=== PATIENT | female | born 1975 | race African-American/Black ===

== ENCOUNTER 2016-12-09 20:43 | Emergency (ER) | payer OTHER ==
[2016-12-09 22:23] LABS: ALT (SGPT) 16 U/L (8-55); AST (SGOT) 18 U/L (5-34); Alkaline Phosphatase 96 U/L (40-150); Anion Gap 15 mmol/L (10-20); BUN (Urea Nitrogen) 17 mg/dL (7.0-18.7); Bilirubin, Total 0.4 mg/dL (0.2-1.2); Calc. Creatinine Clearance 0 mL/min (70-130); Carbon Dioxide 26 mmol/L (22-29); Chloride 102 mmol/L (98-107); Estimated GFR-MDRD 44; Globulin 4.1 g/dL (2.4-3.5); Protein, Total 7.5 g/dL (6.0-8.3)
[2016-12-09 22:41] LABS: #Basophils 0.1 thou/uL (0.0-0.2); #Eosinphils 0.2 thou/uL (0.0-0.7); #Lymphocytes 1.1 thou/uL (1.20-3.40); #Monocytes 0.8 thou/uL (0.11-0.59); #Neutrophils 4.4 thou/uL (1.40-6.50); %Basophils 0.8 % (0.0-1.0); %Eosinophils 3.4 % (0.0-10.0); Hematocrit 43.1 % (36.0-47.0); Mean Platelet Volume 7.4 fL (7.4-10.4); Red Blood Cell (RBC) Count 4.81 mill/uL (4.20-5.40); White Blood Cell (WBC) Count 6.6 thou/uL (4.8-10.8)
[2016-12-09] MEDS ORDERED: Acetaminophen 500 MG TAB ONE (22:43)
[2016-12-09 22:48] LABS: Bilirubin Negative (Negative); Blood, Urine Negative (Negative); Glucose, Urine (Dipstick) Negative (Negative); Ketone, Urine Negative (Negative); Nitrite Negative (Negative); Protein, Urine (Dipstick) Negative (Neg-Trace)
== END 2016-12-10 00:01 | disposition home or self-care (01) ==
LOC: ERS 20:43
DX: N28.9 Disorder of kidney and ureter, unspecified (principal); R55 Syncope and collapse; D86.9 Sarcoidosis, unspecified; G47.30 Sleep apnea, unspecified; E11.9 Type 2 diabetes mellitus without complications; K21.9 Gastro-esophageal reflux disease without esophagitis; E66.9 Obesity, unspecified; I11.0 Hypertensive heart disease with heart failure; I50.9 Heart failure, unspecified; M10.9 Gout, unspecified; E78.5 Hyperlipidemia, unspecified; F41.9 Anxiety disorder, unspecified
CPT/HCPCS: 36415; 80053; 81003; 81025; 85025; 93005; 96360

== ENCOUNTER 2017-03-08 17:12 | Inpatient (IN) | payer OTHER ==
[2017-03-08 17:59] LABS: ALT (SGPT) 15 U/L (8-55); AST (SGOT) 19 U/L (5-34); Albumin 3.7 g/dL (3.5-5.0); Alkaline Phosphatase 119 U/L (40-150); Anion Gap 18 mmol/L (10-20); BUN (Urea Nitrogen) 14 mg/dL (7.0-18.7); Bilirubin, Total 0.5 mg/dL (0.2-1.2); Calc. Creatinine Clearance 0 mL/min (70-130); Calcium 9.5 mg/dL (7.8-10.44); Carbon Dioxide 23 mmol/L (22-29); Chloride 93 mmol/L (98-107); Estimated GFR-MDRD 36; Globulin 4.7 g/dL (2.4-3.5); Glucose 463 mg/dL (70-105); Potassium 4.2 mmol/L (3.5-5.1); Protein, Total 8.4 g/dL (6.0-8.3); Sodium 130 mmol/L (136-145)
[2017-03-08 18:04] LABS: Band 7 % (5-11); Hemoglobin 15.1 g/dL (12.0-16.0); Lymphocytes 15 % (21-51); MDiff Complete? YES; Mean Corpuscular HGB CONC 31.7 g/dL (32.0-36.0); Mean Corpuscular Hemoglobin 27.7 pg (27.0-31.0); Mean Corpuscular Volume 87.3 fl (81.0-99.0); Mean Platelet Volume 8.2 fL (7.4-10.4); Monocytes 17 % (0-10); Neutrophil 60 % (42-75); PLT Morphology Comment Appears Adequate; Platelet Count 177 thou/uL (130-400); RBC Distribution Width 14.5 % (11.5-14.5); Reactive Lymphocytes 1 % (0-10); Red Blood Cell (RBC) Count 5.46 mill/uL (4.20-5.40); White Blood Cell (WBC) Count 4.7 thou/uL (4.8-10.8)
[2017-03-08 19:05] LABS: Phosphorus 3.4 mg/dL (2.3-4.7)
[2017-03-08 19:18] LABS: Magnesium 1.8 mg/dL (1.6-2.6)
[2017-03-08 20:17] LABS: CKMB 1.8 ng/mL (0-6.6); Troponin I 0.015 ng/mL (< 0.028)
[2017-03-08 20:43] LABS: Bilirubin Moderate (Negative); Blood, Urine Negative (Negative); Clarity CLEAR (Clear); Glucose, Urine (Dipstick) >=1000 mg/dL (Negative); Leukocyte Negative (Negative); Nitrite Negative (Negative); Protein, Urine (Dipstick) 100 mg/dL (Neg-Trace); Urobilinogen 0.2 mg/dL (0.2-1.0)
[2017-03-08 20:45] LABS: Bacteria/HPF Rare-Few HPF (None Seen); Hyaline Casts/LPF 0-3 HYALINE CAST LPF (0-3 Hyaline); Pathc Cast-AUWi Flag 0.54 (0-2.49); RBC/HPF 0-3 HPF (0-3); WBC/HPF 0-3 HPF (0-3)
[2017-03-08 20:46] LABS: Yeast-AUWi Flag 88.4 (0-25.0)
[2017-03-08 20:51] LABS: Transitional Epithelial 0-3 HPF (0-3)
[2017-03-08 20:52] LABS: Yeast-All Forms Rare HPF (None Seen)
--- NOTE | 2017-03-08 21:08 | RAD ---
PORTABLE AP CHEST X-RAY 03/08/17 HISTORY: Dyspnea and not feeling well. Nausea and vomiting for three to four days. COMPARISON: 10/30/16. FINDINGS: Dual lead left subclavian cardiac pacemaking device remains in place. There is linear and minimal pat ursula density in the mid lung zone which could be related to developing area of pneumonitis. Right lung is clear. There is suboptimal evaluation of the left lung base due to technique of the exam. The car diac silhouette and pulmonary vasculature are within normal limits for the portable technique. No oth er interval change. IMPRESSION: Linear and minimal patchy density in the left mid lung zone which could be related to atelectasis or developing area of pneumonitis. Followup chest x-ray is recommended to resolution. POS: [facility]
[2017-03-08 21:40] LABS: Base Excess-Venous 0.2 mmol/L (-30.0-30.0); Bicarbonate (HCO3v) 25.7 mmol/L (1.0-85.0); CO2 Tension (PvCO2) 43.5 mmHg (41.0-51.0); Calcium, Ionized 1.01 mmol/L (1.12-1.32); Hemoglobin - Calc 17.4 g/dL (12.0-18.0); O2 Tension (PvO2) 59.6 mmHg (35.0-45.0); Potassium 4.2 mmol/L (3.4-4.7); T. Carbon Dioxide 27.1 mmol/L (1.0-85.0); vO2 Saturation-calc 89.8 % (0.0-100.0)
[2017-03-08] MEDS ORDERED: Insulin Regular 300 UNITS/3 ML VIAL ONE (22:11)
[2017-03-08] MEDS ORDERED: CEFTRIAXONE 2GM/50 ML BAG 2 GM in Premix Bag 1 BAG IVPB SCH (22:15)
[2017-03-08] MEDS ORDERED: Azithromycin 500 MG in Sodium Chloride 0.9% 250 ML 250 ML IVPB SCH (22:15)
[2017-03-09] MEDS ORDERED: Sodium Chloride 0.9% 1,000 ML IV SCH (02:10)
[2017-03-09] MEDS ORDERED: Acetaminophen 325 MG TAB PO PRN (02:10)
[2017-03-09] MEDS ORDERED: Ondansetron ODT 4 MG TAB SL PRN (02:10)
[2017-03-09] MEDS ORDERED: Ondansetron HCl/PF 4 MG/2 ML Vial IVP PRN ×2 (02:10→08:43)
[2017-03-09] MEDS ORDERED: Dextrose 5% in Water 1,000 ML IV PRN (02:44)
[2017-03-09] MEDS ORDERED: Chloraseptic Spray 180 ml Bottle PO PRN (02:44)
[2017-03-09] MEDS ORDERED: hydrALAZINE 20 MG/ML VIAL SLOW IVP PRN (02:44)
[2017-03-09] MEDS ORDERED: Bisacodyl 5 MG TAB PO PRN (02:44)
[2017-03-09] MEDS ORDERED: Metoclopramide HCl 10 MG/2 ML VIAL IVP PRN (02:44)
[2017-03-09] MEDS ORDERED: HumaLOG 300 UNITS/3 ML VIAL SC PRN (02:44)
[2017-03-09] MEDS ORDERED: Dextrose 50% Abboject 50 ML SYRINGE SLOW IVP PRN (02:44)
[2017-03-09] MEDS ORDERED: Calcium Carbonate 500 MG ChewTAB PO PRN (02:44)
[2017-03-09 03:25] VITALS: BMI 66.9
[2017-03-09] MEDS: Sodium Chloride 0.9% 1,000 ML IV SCH ×2 (03:48→14:41)
[2017-03-09 05:13] LABS: Anion Gap 17 mmol/L (10-20); BUN (Urea Nitrogen) 12 mg/dL (7.0-18.7); Calc. Creatinine Clearance 143 mL/min (70-130); Calcium 9.2 mg/dL (7.8-10.44); Carbon Dioxide 24 mmol/L (22-29); Chloride 95 mmol/L (98-107); Estimated GFR-MDRD 40; Glucose 349 mg/dL (70-105); Potassium 3.9 mmol/L (3.5-5.1); Sodium 132 mmol/L (136-145)
[2017-03-09 05:25] LABS: Band 6 % (5-11); Eosinophils 1 % (0-10); Hemoglobin 14.1 g/dL (12.0-16.0); Lymphocytes 20 % (21-51); MDiff Complete? YES; Mean Corpuscular HGB CONC 31.2 g/dL (32.0-36.0); Mean Corpuscular Hemoglobin 27.2 pg (27.0-31.0); Mean Corpuscular Volume 87.2 fl (81.0-99.0); Mean Platelet Volume 8.4 fL (7.4-10.4); Monocytes 20 % (0-10); Neutrophil 53 % (42-75); Platelet Count 195 thou/uL (130-400); RBC Distribution Width 14.4 % (11.5-14.5); Red Blood Cell (RBC) Count 5.19 mill/uL (4.20-5.40); White Blood Cell (WBC) Count 5.6 thou/uL (4.8-10.8)
--- NOTE | 2017-03-09 06:11 | HP ---
CHIEF COMPLAINT: Nausea, vomiting, and hypoxia, shortness of breath. HISTORY OF PRESENT ILLNESS: This is a 41-year-old pleasant lady, who comes into the hospital with hy poxia and nausea, vomiting. Her room air sats were 88 and went up to 96 on 2 liters. The patient al so had some intractable nausea and vomiting for the last 3 or 4 days with some chills and some cough. She came into the hospital for evaluation of that. When she came in, her sugar was 463. She was g iven some IV and she was dehydrated as well. For all these reason, the patient has been admitted for further evaluation and treatment. Chest x-ray did show some left middle zone pneumonia and she is b eing admitted for further evaluation and treatment of that. The patient denies any chest pain or abd ominal pain or any dysuria or diarrhea. PAST MEDICAL HISTORY: Significant for history of syncope with symptomatic bradycardia, status post p ermanent pacemaker placement, obstructive sleep apnea, stage IV sarcoidosis with hypercalcemia, histo ry of diabetes, which being controlled by diet, GERD, morbid obesity, peripheral neuropathy, hyperten qing. PAST SURGICAL HISTORY: Includes tracheostomy, cholecystectomy. SOCIAL HISTORY: Nonsmoker, nondrinker. Does not use recreational drugs. ALLERGIES: OXYCONTIN and PENICILLIN. MEDICATIONS: Please see MAR. FAMILY HISTORY: Negative for diabetes and hypertension. REVIEW OF SYSTEMS: Significant for shortness of breath, nausea, vomiting, some subjective fever and chills. Otherwise, no headache, no eye pain, no hearing loss, no latencies. Some cough and no chest pain, no diarrhea, dysuria or polyuria. No memory or mood changes. No neck pain. PHYSICAL EXAMINATION: VITAL SIGNS: Blood pressure is 100/51, respirations 20, afebrile. Right now satting 96% on 2 liters . GENERAL: Patient is lying in bed in mild distress because of the nausea. HEENT: Atraumatic, normocephalic. Pupils are equally round, react to light. Extraocular movements intact. Mucous membranes moist. NECK: No JVD. CHEST: Some coarse breath sounds heard in the left side. HEART: S1, S2 normal. No murmurs or gallops. ABDOMEN: Soft, obese. EXTREMITIES: No cyanosis, clubbing, edema. Distal pulses present. NEUROLOGIC: Alert, awake, oriented. No cranial deficits. No sensorimotor deficits. LABORATORY DATA: WBC is 4.7, hemoglobin is 15.1, platelet count is 177, neutrophils are 60, venous A BG shows a pH of 7.38. Sodium is 130, potassium is 4.2, chloride is 93, bicarbonate is 23, BUN is 14 , creatinine is 1.8. UA shows no signs of infection. Toxicology shows beta hydroxybutyrate of 2.33. ASSESSMENT AND PLAN: 1. Acute respiratory failure with hypoxia secondary to combination of pneumonia and obstructive slee p apnea, and there is a left zone infiltrate on the chest x-ray. We will treat with IV antibiotics a nd get sputum cultures. Check for flu. Consult Pulmonary. Patient also has a stage IV sarcoidosis. She is followed by Dr. Moran as an outpatient, nausea, vomiting with hyperglycemia. Patient is n ot acidotic, as of now bicarbonate is 23. We will symptomatically treat the patient. We will give I V hydration and put the patient on insulin. We will monitor BNP and do the need for acute renal fail ure secondary to dehydration. We will gently hydrate the patient. 2. Morbid obesity. Patient has been counseled. 3. History of syncope, status post pacemaker done by Dr. Harris, sally. 4. History of diabetes right now, uncontrolled sugars usually controlled by diet. We will do insuli n sliding scale and monitor the patient. 5. Gastroesophageal reflux disease, stable. 6. Hypertension, stable. I will do sequential compression device for deep venous thrombosis prophyl axis. I will work with the consultants further caring for the patient.
[2017-03-09] MEDS: Docusate 100 MG CAP PO SCH ×2 (08:10→20:30)
[2017-03-09] MEDS ORDERED: Ondansetron ODT 4 MG TAB PO PRN (08:43)
[2017-03-09] MEDS ORDERED: Nitroglycerin 0.4 MG TAB (25 Tab Bottle) PO PRN (08:43)
[2017-03-09] MEDS ORDERED: Senokot 8.6 MG TAB PO PRN (08:43)
[2017-03-09] MEDS ORDERED: FLU VACC QS2017-18 36 mo. & older 0.5 ML SYRINGE IM ONE (09:00)
[2017-03-09] MEDS ORDERED: Insulin Detemir 100 UNITS/ML 5 UNITS in Pre-Filled Syringe 1 EACH SC SCH (09:00)
[2017-03-09] MEDS: Famotidine 20 MG TAB PO SCH ×2 (10:14→20:31)
[2017-03-09 11:39] LABS: Hemoglobin A1c 10.7 % (4.0-6.0)
[2017-03-09] MEDS ORDERED: predniSONE 20 MG TAB PO SCH (12:00)
[2017-03-09] MEDS: HumaLOG 300 UNITS/3 ML VIAL SC PRN ×3 (12:54→20:33)
--- NOTE | 2017-03-09 13:27 | CON ---
DATE OF SERVICE: 03/09/2017 HISTORY: Ms. Penn is a very pleasant 41-year-old female with a history of sarcoidosis. She has been seen by Dr. Moran in the past. She has not been seen by him in quite some time, she says, because she is being unable to get a referral from her primary care physician. She presents with a week of aches, nausea, vomiting and change in her vision. She subsequently was evaluated in the Emergency Department, noted to be hyperglycemic. She says she has never been on medications for diabetes. There have been multiple ER visits here in the last 2 years. The last hospitalization was in 2014. It was mentioned in the discharge summary that she had type 2 diabetes, but she had normal blood sugars while she was in the hospital. She was not discharged on any diabetes medicine and was discharged surprisingly on a prednisone taper with no history of hyperglycemia during that hospitalization with steroids. Says her nausea is better, but her vision is still blurry. We are consulted because of her history of sarcoid. PAST MEDICAL HISTORY: 1. Remarkable for sleep apnea on BiPAP. She says she is 100% compliant with BiPAP and her family is bringing her machine up. 2. History of moderate restrictive defect on pulmonary function tests in the past. 3. History of diabetes, on no medications. 4. Gastroesophageal reflux. 5. Gout. 6. Lipid disorder. 7. History of ventricular tachycardia. 8. History of a tracheostomy in the past. 9. History of cholecystectomy. SOCIAL HISTORY: She is a nonsmoker and nondrinker. She still has significant weight issues. Apparently, she has been living in a fpc in the past; it is unclear to me whether or not she still has. FAMILY HISTORY: Noncontributory ALLERGIES: She reports OXYCONTIN and PENICILLIN intolerance. MEDICATIONS: Prior to admission, she was on gabapentin, 15 mg of prednisone, 5 mg of amlodipine and 20 mg of lisinopril. REVIEW OF SYSTEMS: Ten-point is otherwise negative. She has had no diarrhea or abdominal pain. She denies shortness of breath, but she does not move much. Otherwise, her 10- point review of systems negative. PHYSICAL EXAMINATION: VITAL SIGNS: She is afebrile, heart rate is 86, respiratory rate is 18, oximetry is 94 and blood pressure is 109/74. She is on 2 liters a minute. HEENT: Pupils are equal. Sclerae is anicteric. NECK: Supple. LUNGS: Remarkable for diffuse mild wheezes. HEART: Regular rhythm. S1 and S2 are normal. ABDOMEN: Soft and nontender. EXTREMITIES: Without clubbing, cyanosis or edema. IMAGING DATA: Chest radiograph is underpenetrated. There is an area of plate- like atelectasis in her left lung, it is very small. IMPRESSION: 1. Asthmatic bronchitis. 2. History of sarcoidosis. 3. Atelectasis in the left lung. 4. Sleep apnea to be treated with her home BiPAP when it arrives via her family. 5. Sarcoid, which is not the cause of the primary admission. 6. Life threatening obesity and inactivity. 7. Reported history of ventricular tachycardia in the past. 8. History of hypertension. 9. History of reflux disease. PLAN: Bump her steroids. Continue nebulized treatments every 4 hours. Her antibiotics can be simplified. Continue current care. This is a 50-minute consult, greater than 50% of the time was spent on the unit coordinating care, reviewing the records, reviewing radiographs and lab work as well as old records in the computer system. NERY
[2017-03-09] MEDS: Ciprofloxacin HCL/Dexameth Otic Drops 7.5 ml Bottle L EAR SCH (20:29)
[2017-03-09] MEDS: Enoxaparin Sodium 40 MG/0.4 ML SYRINGE SC SCH (20:30)
[2017-03-09] MEDS: Insulin Detemir 100 UNITS/ML 10 UNITS in Pre-Filled Syringe SC SCH (20:31)
[2017-03-09] MEDS: Gabapentin 300 MG CAP PO SCH (20:31)
[2017-03-09] MEDS: ALPRAZolam 0.25 MG TAB PO PRN (20:31)
--- NOTE | 2017-03-09 21:20 | PDOC.EVN ---
Event Note - Event Note Event Note: Patient seen and examined earlier today. Chart reviewed. Pulmonary input pending. Home meds started IMPRESSION: 1. Acute hypoxic respiratory failure due to Pneumonia DKA 2. DKA with N/V probably due to Acute Gastroenteritis vs DKA - improving 3. GEREMIAS - improving 4. DM2 - uncontrolled - Sugars have been normal in the past - currently on no meds 5. ALAN on CPAP 6. Sinus node dysfunction s/p Pacemaker/ HTN/GERD/Sarcoidosis on chronic steroids.
[2017-03-10] MEDS: Sodium Chloride 0.9% 1,000 ML IV SCH ×2 (00:04→08:15)
[2017-03-10] MEDS: HumaLOG 300 UNITS/3 ML VIAL SC PRN ×5 (02:41→21:44)
[2017-03-10 04:41] LABS: #Lymphocytes 0.5 thou/uL (1.20-3.40); #Monocytes 0.1 thou/uL (0.11-0.59); #Neutrophils 3.2 thou/uL (1.40-6.50); %Eosinophils 0.5 % (0.0-10.0); %Monocytes 3.5 % (0.0-10.0); Hemoglobin 13.6 g/dL (12.0-16.0); Mean Corpuscular HGB CONC 30.8 g/dL (32.0-36.0); Mean Corpuscular Hemoglobin 27.3 pg (27.0-31.0); Mean Corpuscular Volume 88.4 fl (81.0-99.0); Mean Platelet Volume 8.5 fL (7.4-10.4); Platelet Count 171 thou/uL (130-400); RBC Distribution Width 14.5 % (11.5-14.5); Red Blood Cell (RBC) Count 4.99 mill/uL (4.20-5.40); White Blood Cell (WBC) Count 3.8 thou/uL (4.8-10.8)
[2017-03-10 05:01] LABS: ALT (SGPT) 10 U/L (8-55); AST (SGOT) 21 U/L (5-34); Albumin 3.3 g/dL (3.5-5.0); Alkaline Phosphatase 97 U/L (40-150); Anion Gap 19 mmol/L (10-20); BUN (Urea Nitrogen) 12 mg/dL (7.0-18.7); Bilirubin, Total 0.5 mg/dL (0.2-1.2); Calc. Creatinine Clearance 143 mL/min (70-130); Calcium 8.5 mg/dL (7.8-10.44); Carbon Dioxide 18 mmol/L (22-29); Chloride 98 mmol/L (98-107); Estimated GFR-MDRD 40; Globulin 4.3 g/dL (2.4-3.5); Glucose 455 mg/dL (70-105); Magnesium 1.9 mg/dL (1.6-2.6); Phosphorus 2.7 mg/dL (2.3-4.7); Protein, Total 7.6 g/dL (6.0-8.3); Sodium 130 mmol/L (136-145)
[2017-03-10] MEDS: Ciprofloxacin HCL/Dexameth Otic Drops 7.5 ml Bottle L EAR SCH (08:12)
[2017-03-10] MEDS: Insulin Detemir 100 UNITS/ML 10 UNITS in Pre-Filled Syringe SC SCH (08:14)
[2017-03-10] MEDS: Amlodipine 5 MG TAB PO SCH (08:16)
[2017-03-10] MEDS: Famotidine 20 MG TAB PO SCH ×2 (08:17→20:39)
[2017-03-10] MEDS: Gabapentin 300 MG CAP PO SCH ×2 (08:17→20:25)
[2017-03-10] MEDS: Citalopram 20 MG TAB PO SCH (08:17)
[2017-03-10] MEDS: Docusate 100 MG CAP PO SCH ×2 (08:17→20:39)
[2017-03-10] MEDS: ALPRAZolam 0.25 MG TAB PO PRN ×2 (08:23→21:48)
[2017-03-10] MEDS ORDERED: Insulin Detemir 100 UNITS/ML 15 UNITS in Pre-Filled Syringe 1 EACH SC SCH (09:00)
[2017-03-10] MEDS ORDERED: Loratadine 5 MG/5 ML UDCUP PO SCH (09:00)
[2017-03-10] MEDS ORDERED: predniSONE 5 MG TAB PO SCH (09:00)
--- NOTE | 2017-03-10 12:04 | PDOC.PN ---
- Subjective Encounter Start Date: 03/10/17 Encounter Start Time: 11:15 Subjective: breathing better -: says she is ambulating in room -: ate her breakfast well this am - Objective Resuscitation Status: Resuscitation Status FULL:Full Resuscitation MAR Reviewed: Yes Vital Signs & Weight: Vital Signs (12 hours) Temp Pulse Resp BP BP Pulse Ox 03/10/17 11:30 97.9 F 83 18 122/79 95 03/10/17 11:25 82 16 98 03/10/17 08:16 79 109/66 03/10/17 08:00 97.8 F 79 18 95 03/10/17 07:23 97.8 F 79 18 109/66 95 03/10/17 06:59 90 16 92 L Weight Admit Weight 466 lb 8 oz Weight 466 lb 8 oz I&O: 03/09/17 03/10/17 03/11/17 06:59 06:59 06:59 Intake Total 1170 1860 Balance 1170 1860 Result Diagrams: 03/10/17 04:21 03/10/17 04:21 Additional Labs: Accuchecks 03/10/17 03/10/17 03/10/17 11:28 05:24 02:21 POC Glucose 459 H 393 H 385 H 03/09/17 03/09/17 20:29 16:13 POC Glucose 353 H 333 H Phys Exam - Physical Examination HEENT: PERRLA, moist MMs Neck: no JVD, supple Respiratory: no wheezing, no rales distant breath sounds Cardiovascular: RRR, no significant murmur Gastrointestinal: soft, non-tender, positive bowel sounds Musculoskeletal: no edema, pulses present Neurological: non-focal, moves all 4 limbs Psychiatric: A&O x 3 Dx/Plan (1) Asthmatic bronchitis with acute exacerbation Code(s): J45.901 - UNSPECIFIED ASTHMA WITH (ACUTE) EXACERBATION Status: Acute Qualifiers: Asthma severity: moderate (2) DM (diabetes mellitus), type 2, uncontrolled Code(s): E11.65 - TYPE 2 DIABETES MELLITUS WITH HYPERGLYCEMIA Status: Chronic Qualifiers: Diabetes mellitus complication status: with kidney complications Diabetes mellitus complication detail: with chronic kidney disease Diabetes mellitus mcfp insulin use: without ad terminal makeup operator use Chronic kidney disease stage: stage 3 (moderate) Qualified Code(s): E11.22 - Type 2 diabetes mellitus with diabetic chronic kidney disease; E11.65 - Type 2 diabetes mellitus with hyperglycemia; E11.65 - Type 2 diabetes mellitus with hyperglycemia; E11.65 - Type 2 diabetes mellitus with hyperglycemia; E11.65 - Type 2 diabetes mellitus with hyperglycemia; N18.3 - Chronic kidney disease, stage 3 (moderate); N18.3 - Chronic kidney disease, stage 3 (moderate) (3) Morbid obesity with BMI of 60.0-69.9, adult Code(s): E66.01 - MORBID (SEVERE) OBESITY DUE TO EXCESS CALORIES; Z68.44 - BODY MASS INDEX (BMI) 60.0-69.9, ADULT Status: Chronic (4) CKD (chronic kidney disease) stage 3, GFR 30-59 ml/min Code(s): N18.3 - CHRONIC KIDNEY DISEASE, STAGE 3 (MODERATE) Status: Chronic (5) HTN (hypertension) Code(s): I10 - ESSENTIAL (PRIMARY) HYPERTENSION Status: Chronic Qualifiers: Hypertension type: essential hypertension Qualified Code(s): I10 - Essential (primary) hypertension (6) Obstructive sleep apnea Code(s): G47.33 - OBSTRUCTIVE SLEEP APNEA (ADULT) (PEDIATRIC) Status: Chronic (7) Sarcoidosis Code(s): D86.9 - SARCOIDOSIS, UNSPECIFIED Status: Chronic - Plan increase levemir to 25u bid and 15u one dose now -: is on solumdrol bid -: levaquin -: may dc iv fluids, pt is tolerating oral diet -: to amb as tolerated, has life threatening obesity * . Review of Systems - Medications/Allergies Allergies/Adverse Reactions: Allergies Allergy/AdvReac Type Severity Reaction Status Date / Time oxycodone HCl Allergy Severe Anaphylaxis Verified 03/09/17 02:37 [From OxyContin] penicillin G Allergy Severe Anaphylaxis Verified 03/09/17 02:37 Medications: Current Medications Acetaminophen (Tylenol) 650 mg PO Q4H PRN PRN Reason: Headache/Fever or Pain Albuterol/Ipratropium (Duoneb) 3 ml NEB [id number] MANISHA Last Admin: 03/10/17 11:25 Dose: 3 ml Albuterol/Ipratropium (Duoneb) 3 ml NEB Q2H PRN PRN Reason: SOB &/or Wheezing Alprazolam (Xanax) 0.25 mg PO BID PRN PRN Reason: Anxiety Last Admin: 03/10/17 08:23 Dose: 0.25 mg Amlodipine Besylate (Norvasc) 5 mg PO DAILY [facility] Last Admin: 03/10/17 08:16 Dose: Not Given Bisacodyl (Dulcolax) 10 mg PO DAILYPRN PRN PRN Reason: Constipation Calcium Carbonate (Tums) 1,000 mg PO Q4H PRN PRN Reason: Heartburn or Indigestion Ciprofloxacin/Dexamethasone (Ciprodex 0.3-0.1% Otic Drops) 4 drop L EAR BID [facility] Last Admin: 03/10/17 08:12 Dose: Not Given Citalopram Hydrobromide (Celexa) 20 mg PO DAILY [facility] Last Admin: 03/10/17 08:17 Dose: 20 mg Dextrose/Water (Dextrose 50%) 25 gm SLOW IVP PRN PRN PRN Reason: Hypoglycemia Docusate Sodium (Colace) 100 mg PO BID [facility] Last Admin: 03/10/17 08:17 Dose: Not Given Enoxaparin Sodium (Lovenox) 40 mg SC 2100 [facility] Last Admin: 03/09/17 20:30 Dose: Not Given Famotidine (Pepcid) 20 mg PO BID [facility] Last Admin: 03/10/17 08:17 Dose: Not Given Gabapentin (Neurontin) 300 mg PO BID [facility] Last Admin: 03/10/17 08:17 Dose: 300 mg Glucagon (Glucagon) 1 mg IM PRN PRN PRN Reason: Hypoglycemia Hydralazine HCl (Apresoline) 10 mg SLOW IVP Q4H PRN PRN Reason: Systolic BP > 180 Dextrose/Water (D5w) 1,000 mls @ 0 mls/hr IV .Q0M PRN; As Directed PRN Reason: Hypoglycemia Levofloxacin 750 mg/ Device 150 mls @ 100 mls/hr IVPB Q2D [facility] Sodium Chloride (Normal Saline 0.9%) 1,000 mls @ 75 mls/hr IV .[id number] [facility] Last Admin: 03/10/17 08:15 Dose: Not Given Insulin Detemir 25 units/ (Miscellaneous Medication) 0.25 mls @ 0 mls/hr SC BID [facility] Insulin Detemir 15 units/ (Miscellaneous Medication) 0.15 mls @ 0 mls/hr SC NOW [facility] Stop: 03/10/17 14:15 Insulin Human Lispro (Humalog) 0 units SC .BEDTIME SLIDING SC PRN PRN Reason: Bedtime Correctional Scale Last Admin: 03/10/17 02:41 Dose: 5 unit Insulin Human Lispro (Humalog) 0 units SC .AGGRESSIVE SLIDING PRN PRN Reason: Aggressive Correctional Scale Last Admin: 03/10/17 11:31 Dose: 13 unit Loratadine (Claritin Oral Solution) 5 mg PO DAILY [facility] Last Admin: 03/10/17 08:13 Dose: Not Given Methylprednisolone Sodium Succinate (Solu-Medrol) 40 mg IVP Q12HR [facility] Last Admin: 03/10/17 08:17 Dose: 40 mg Miscellaneous Medication (Pharmacy To Dose) 1 each IVPB PRN PRN PRN Reason: Pharmacy to dose Nitroglycerin (Nitrostat) 0.4 mg PO Q5MIN PRN PRN Reason: Chest Pain Ondansetron HCl (Zofran Odt) 4 mg PO Q6H PRN PRN Reason: Nausea/Vomiting Ondansetron HCl (Zofran) 4 mg IVP Q6H PRN PRN Reason: Nausea/Vomiting Phenol (Chloraseptic Farner 180 Ml Bot) 0 ml PO PRN PRN PRN Reason: Sore Throat Senna (Senokot) 2 tab PO HSPRN PRN PRN Reason: Constipation
[2017-03-10] MEDS ORDERED: Insulin Detemir 100 UNITS/ML 15 UNITS in Pre-Filled Syringe SC SCH (12:15)
[2017-03-10] MEDS ORDERED: Insulin Detemir 100 UNITS/ML 25 UNITS in Pre-Filled Syringe SC SCH ×2 (18:00→21:00)
--- NOTE | 2017-03-10 18:07 | PRG ---
DATE OF SERVICE: 03/10/2017 Ms. Penn has done well overnight. OBJECTIVE: VITAL SIGNS: She is afebrile, heart rate in the 90s, respiratory rate 17, oximetry is 93, blood pres sure 101/62. LUNGS: Unchanged. HEART: Unchanged. ABDOMEN: Unchanged. IMPRESSION: 1. Nausea, vomiting, muscle aches followed by visit to the ER with hypoglycemia. I think this illne ss is viral triggered asthmatic bronchitis. She does have a history of sarcoidosis. This is less of a clinical problem other than wiping out some of her reserve for obesity still a big issue 2. Sleep apnea is being treated with her home BiPAP. We will continue with current care.
[2017-03-10] MEDS: Acetaminophen 325 MG TAB PO PRN (20:27)
[2017-03-10] MEDS: Enoxaparin Sodium 40 MG/0.4 ML SYRINGE SC SCH (20:39)
[2017-03-11] MEDS: HumaLOG 300 UNITS/3 ML VIAL SC PRN ×5 (02:29→21:19)
[2017-03-11] MEDS ORDERED: Dextrose 5% in Water 1,000 ML IV PRN (06:30)
[2017-03-11] MEDS ORDERED: Dextrose 50% Abboject 50 ML SYRINGE SLOW IVP PRN (06:30)
--- NOTE | 2017-03-11 06:33 | PDOC.EVN ---
Event Note - Event Note Event Note: Blood sugar elevated. Covered with aggressive sliding scale at HS and at 0200. This AM sugar still in 500s. Will add 5 units TID to aggressive sliding scale. Cont Levemir 25 units BID
[2017-03-11] MEDS: Amlodipine 5 MG TAB PO SCH (09:02)
[2017-03-11] MEDS: Citalopram 20 MG TAB PO SCH (09:04)
[2017-03-11] MEDS: Gabapentin 300 MG CAP PO SCH ×2 (09:04→21:19)
[2017-03-11] MEDS: Acetaminophen 325 MG TAB PO PRN (09:06)
[2017-03-11] MEDS: HumaLOG 300 UNITS/3 ML VIAL SC SCH ×3 (09:09→17:12)
[2017-03-11] MEDS: Insulin Detemir 100 UNITS/ML 25 UNITS in Pre-Filled Syringe SC SCH ×2 (09:19→21:20)
[2017-03-11] MEDS: Famotidine 20 MG TAB PO SCH ×2 (09:19→21:18)
[2017-03-11] MEDS: Docusate 100 MG CAP PO SCH ×2 (09:19→21:18)
[2017-03-11] MEDS ORDERED: Insulin Detemir 100 UNITS/ML 25 UNITS in Pre-Filled Syringe 1 EACH SC STA (10:05)
[2017-03-11] MEDS ORDERED: predniSONE 5 MG TAB PO SCH (12:30)
--- NOTE | 2017-03-11 12:31 | PDOC.PN ---
- Subjective Encounter Start Date: 03/11/17 Encounter Start Time: 11:35 Subjective: breathing better, is sitting in chair -: tolerating oral diet - Objective Resuscitation Status: Resuscitation Status FULL:Full Resuscitation MAR Reviewed: Yes Vital Signs & Weight: Vital Signs (12 hours) Temp Pulse Resp BP Pulse Ox 03/11/17 12:00 98.7 F 75 20 131/82 94 L 03/11/17 09:02 77 03/11/17 08:34 97.5 F L 77 20 105/67 96 03/11/17 07:58 97.5 F L 71 16 03/11/17 07:19 71 16 98 03/11/17 06:24 97.5 F L 74 22 H 117/73 99 03/11/17 03:33 94 L 03/11/17 03:02 92 16 92 L 03/11/17 00:36 97.7 F 92 18 109/69 91 L Weight Admit Weight 466 lb 8 oz Weight 466 lb 8 oz I&O: 03/10/17 03/11/17 03/12/17 06:59 06:59 06:59 Intake Total 1860 2635 Balance 1860 2635 Result Diagrams: 03/10/17 04:21 03/10/17 04:21 Additional Labs: Accuchecks 03/11/17 03/11/17 03/11/17 11:22 05:55 02:29 POC Glucose 509 H 532 H 549 H 03/10/17 03/10/17 20:52 15:59 POC Glucose 529 H 514 H Phys Exam - Physical Examination HEENT: PERRLA, moist MMs Neck: no JVD, supple Respiratory: no wheezing, no rales Cardiovascular: RRR, no significant murmur Gastrointestinal: soft, non-tender, positive bowel sounds Musculoskeletal: no edema, pulses present Neurological: non-focal, moves all 4 limbs Psychiatric: A&O x 3 Dx/Plan (1) Asthmatic bronchitis with acute exacerbation Code(s): J45.901 - UNSPECIFIED ASTHMA WITH (ACUTE) EXACERBATION Status: Acute Qualifiers: Asthma severity: moderate (2) DM (diabetes mellitus), type 2, uncontrolled Code(s): E11.65 - TYPE 2 DIABETES MELLITUS WITH HYPERGLYCEMIA Status: Chronic Qualifiers: Diabetes mellitus complication status: with kidney complications Diabetes mellitus complication detail: with chronic kidney disease Diabetes mellitus senior commercial loan officer insulin use: without care home use Chronic kidney disease stage: stage 3 (moderate) Qualified Code(s): E11.22 - Type 2 diabetes mellitus with diabetic chronic kidney disease; E11.65 - Type 2 diabetes mellitus with hyperglycemia; E11.65 - Type 2 diabetes mellitus with hyperglycemia; E11.65 - Type 2 diabetes mellitus with hyperglycemia; E11.65 - Type 2 diabetes mellitus with hyperglycemia; N18.3 - Chronic kidney disease, stage 3 (moderate); N18.3 - Chronic kidney disease, stage 3 (moderate) Comment: uncontrolled (3) Morbid obesity with BMI of 60.0-69.9, adult Code(s): E66.01 - MORBID (SEVERE) OBESITY DUE TO EXCESS CALORIES; Z68.44 - BODY MASS INDEX (BMI) 60.0-69.9, ADULT Status: Chronic (4) CKD (chronic kidney disease) stage 3, GFR 30-59 ml/min Code(s): N18.3 - CHRONIC KIDNEY DISEASE, STAGE 3 (MODERATE) Status: Chronic (5) HTN (hypertension) Code(s): I10 - ESSENTIAL (PRIMARY) HYPERTENSION Status: Chronic Qualifiers: Hypertension type: essential hypertension Qualified Code(s): I10 - Essential (primary) hypertension (6) Obstructive sleep apnea Code(s): G47.33 - OBSTRUCTIVE SLEEP APNEA (ADULT) (PEDIATRIC) Status: Chronic (7) Sarcoidosis Code(s): D86.9 - SARCOIDOSIS, UNSPECIFIED Status: Chronic - Plan her dm is uncontrolled with finger glucose persistently above 500 -: dc solumedrol, oral prednisone -: she got 50u of levemir this am, 25 last night -: accurate home med list (dm meds) -: dc plan in am if ok with * . Review of Systems - Medications/Allergies Allergies/Adverse Reactions: Allergies Allergy/AdvReac Type Severity Reaction Status Date / Time oxycodone HCl Allergy Severe Anaphylaxis Verified 03/09/17 02:37 [From OxyContin] penicillin G Allergy Severe Anaphylaxis Verified 03/09/17 02:37 Medications: Current Medications Acetaminophen (Tylenol) 650 mg PO Q4H PRN PRN Reason: Headache/Fever or Pain Last Admin: 03/11/17 09:06 Dose: 650 mg Albuterol/Ipratropium (Duoneb) 3 ml NEB [id number] MANISHA Last Admin: 03/11/17 11:46 Dose: Not Given Albuterol/Ipratropium (Duoneb) 3 ml NEB Q2H PRN PRN Reason: SOB &/or Wheezing Alprazolam (Xanax) 0.25 mg PO BID PRN PRN Reason: Anxiety Last Admin: 03/10/17 21:48 Dose: 0.25 mg Amlodipine Besylate (Norvasc) 5 mg PO DAILY [facility] Last Admin: 03/11/17 09:02 Dose: Not Given Bisacodyl (Dulcolax) 10 mg PO DAILYPRN PRN PRN Reason: Constipation Calcium Carbonate (Tums) 1,000 mg PO Q4H PRN PRN Reason: Heartburn or Indigestion Citalopram Hydrobromide (Celexa) 20 mg PO DAILY [facility] Last Admin: 03/11/17 09:04 Dose: 20 mg Dextrose/Water (Dextrose 50%) 25 gm SLOW IVP PRN PRN PRN Reason: Hypoglycemia Dextrose/Water (Dextrose 50%) 25 gm SLOW IVP PRN PRN PRN Reason: Hypoglycemia Docusate Sodium (Colace) 100 mg PO BID [facility] Last Admin: 03/11/17 09:19 Dose: Not Given Enoxaparin Sodium (Lovenox) 40 mg SC 2100 [facility] Last Admin: 03/10/17 20:39 Dose: Not Given Famotidine (Pepcid) 20 mg PO BID [facility] Last Admin: 03/11/17 09:19 Dose: Not Given Gabapentin (Neurontin) 300 mg PO BID [facility] Last Admin: 03/11/17 09:04 Dose: 300 mg Glucagon (Glucagon) 1 mg IM PRN PRN PRN Reason: Hypoglycemia Glucagon (Glucagon) 1 mg IM PRN PRN PRN Reason: Hypoglycemia Hydralazine HCl (Apresoline) 10 mg SLOW IVP Q4H PRN PRN Reason: Systolic BP > 180 Dextrose/Water (D5w) 1,000 mls @ 0 mls/hr IV .Q0M PRN; As Directed PRN Reason: Hypoglycemia Levofloxacin 750 mg/ Device 150 mls @ 100 mls/hr IVPB Q2D [facility] Last Admin: 03/11/17 02:26 Dose: 150 mls Insulin Detemir 25 units/ (Miscellaneous Medication) 0.25 mls @ 0 mls/hr SC BID [facility] Last Admin: 03/11/17 09:19 Dose: 0.25 mls Dextrose/Water (D5w) 1,000 mls @ 0 mls/hr IV .Q0M PRN; As Directed PRN Reason: Hypoglycemia Insulin Human Lispro (Humalog) 0 units SC .BEDTIME SLIDING SC PRN PRN Reason: Bedtime Correctional Scale Last Admin: 03/10/17 02:41 Dose: 5 unit Insulin Human Lispro (Humalog) 0 units SC .AGGRESSIVE SLIDING PRN PRN Reason: Aggressive Correctional Scale Last Admin: 03/11/17 11:48 Dose: 13 unit Insulin Human Lispro (Humalog) 5 units SC 0800 [facility] Last Admin: 03/11/17 09:09 Dose: 5 unit Insulin Human Lispro (Humalog) 5 units SC 1200 [facility] Last Admin: 03/11/17 11:51 Dose: 5 unit Insulin Human Lispro (Humalog) 5 units SC 1700 [facility] Miscellaneous Medication (Pharmacy To Dose) 1 each IVPB PRN PRN PRN Reason: Pharmacy to dose Nitroglycerin (Nitrostat) 0.4 mg PO Q5MIN PRN PRN Reason: Chest Pain Ondansetron HCl (Zofran Odt) 4 mg PO Q6H PRN PRN Reason: Nausea/Vomiting Ondansetron HCl (Zofran) 4 mg IVP Q6H PRN PRN Reason: Nausea/Vomiting Phenol (Chloraseptic [place] 180 Ml Bot) 0 ml PO PRN PRN PRN Reason: Sore Throat Prednisone (Prednisone) 10 mg PO ONE [facility] Prednisone (Prednisone) 10 mg PO QAM-[facility] Senna (Senokot) 2 tab PO HSPRN PRN PRN Reason: Constipation
[2017-03-11] MEDS: Enoxaparin Sodium 40 MG/0.4 ML SYRINGE SC SCH (21:18)
--- NOTE | 2017-03-11 22:45 | PRG ---
DATE OF SERVICE: 03/11/2017 SUBJECTIVE: Ms. Andre Penn has no complaints. I watched her walk in the [place] and examined her back in the room. OBJECTIVE: VITAL SIGNS: She is afebrile, heart rate is 88, respiratory rate is 22, oximetry is 92, blood pressu re 126/79. LUNGS: Distant, clear. HEART: Regular rhythm. ABDOMEN: Soft. IMPRESSION: 1. History of sarcoidosis. 2. Asthmatic bronchitis, dramatically improved. 3. Small area of atelectasis in the left lung. 4. Sleep apnea, on BiPAP at home. 5. Life-threatening obesity. 6. History of ventricular tachycardia. 7. History of hypertension. 8. History of reflux disease. PLAN: Continue current care. She actually looks well enough to go home, maybe tomorrow if she remai ns stable. She can be switched to p.o. antimicrobial therapy. Her blood sugars have been way up thi s afternoon, so her steroids should be decreased significantly in my opinion. She did not have any e lectrolytes today and probably needs to have her renal function and electrolytes re-evaluated tomorro joana
[2017-03-12] MEDS: HumaLOG 300 UNITS/3 ML VIAL SC PRN ×5 (02:23→20:45)
[2017-03-12] MEDS ORDERED: predniSONE 20 MG TAB PO SCH (08:00)
[2017-03-12] MEDS ORDERED: predniSONE 5 MG TAB PO SCH (08:00)
[2017-03-12] MEDS ORDERED: glipiZIDE 5 MG TAB PO SCH (08:30)
[2017-03-12 08:52] LABS: Anion Gap 18 mmol/L (10-20); BUN (Urea Nitrogen) 21 mg/dL (7.0-18.7); Calc. Creatinine Clearance 122 mL/min (70-130); Calcium 9.7 mg/dL (7.8-10.44); Carbon Dioxide 20 mmol/L (22-29); Chloride 99 mmol/L (98-107); Estimated GFR-MDRD 33; Glucose 492 mg/dL (70-105); Potassium 4.2 mmol/L (3.5-5.1); Sodium 133 mmol/L (136-145)
[2017-03-12] MEDS: Citalopram 20 MG TAB PO SCH (08:52)
[2017-03-12 08:53] LABS: Band 15 % (5-11); Hemoglobin 14.1 g/dL (12.0-16.0); Lymphocytes 5 % (21-51); MDiff Complete? YES; Mean Corpuscular HGB CONC 31.5 g/dL (32.0-36.0); Mean Corpuscular Hemoglobin 27.4 pg (27.0-31.0); Mean Corpuscular Volume 87.1 fl (81.0-99.0); Mean Platelet Volume 8.1 fL (7.4-10.4); Metamyelocyte 1 % (0-0); Monocytes 6 % (0-10); Neutrophil 73 % (42-75); PLT Morphology Comment Appears Adequate; Platelet Count 253 thou/uL (130-400); RBC Distribution Width 14.9 % (11.5-14.5); Red Blood Cell (RBC) Count 5.15 mill/uL (4.20-5.40); Vacuoles SLIGHT; White Blood Cell (WBC) Count 12.5 thou/uL (4.8-10.8)
[2017-03-12] MEDS: Docusate 100 MG CAP PO SCH ×2 (08:53→20:43)
[2017-03-12] MEDS: metFORMIN 500 MG TAB PO SCH ×3 (08:53→20:44)
[2017-03-12] MEDS: Famotidine 20 MG TAB PO SCH ×2 (08:53→20:43)
[2017-03-12] MEDS: Amlodipine 5 MG TAB PO SCH (08:53)
[2017-03-12] MEDS: Gabapentin 300 MG CAP PO SCH ×2 (08:53→20:44)
[2017-03-12] MEDS: Insulin Detemir 100 UNITS/ML 25 UNITS in Pre-Filled Syringe SC SCH ×2 (08:55→20:46)
[2017-03-12] MEDS: HumaLOG 300 UNITS/3 ML VIAL SC SCH ×3 (09:02→16:50)
--- NOTE | 2017-03-12 09:37 | PRG ---
DATE OF SERVICE: 03/12/2017 Ms. Penn was hospitalized over the weekend was severe hyperglycemia, unbeknownst to me, she was st arted on prednisone as an outpatient for management of her sarcoid. I had previously been managing h er on Imuran. I purposely avoided prednisone for fear of weight gain and development of hyperglycemi a in this patient. Today she feels better. PHYSICAL EXAMINATION: VITAL SIGNS: Temperature is 98.1, pulse 69, respirations 18, O2 sat 100%, blood pressure 111/61. HEENT: Unremarkable. NECK: No JVD. CHEST: Clear. CARDIAC: S1 and S2 regular. ABDOMEN: Soft. EXTREMITIES: No edema. LABORATORY DATA: White blood cell count 12.5, hematocrit 44.9, platelet count 253. Sodium 133, pota ssium 4.2, chloride 99, CO2 20, BUN 21, creatinine 1.9, glucose 492. ASSESSMENT: 1. 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 2. Diabetes mellitus. 3. Steroids use. PLAN: This patient will be managed better if we were able to wean her from the prednisone and restar t her on the Imuran. I am going to go ahead and restart Imuran while she is in the hospital. She un derstands that she has to keep her appointments with me and get her blood count checked at least ever y 3 months to make sure she does not develop leukopenia while on that medication.
[2017-03-12] MEDS: azaTHIOprine 50 MG TAB PO SCH (11:06)
--- NOTE | 2017-03-12 12:11 | PDOC.PN ---
- Subjective Encounter Start Date: 03/12/17 Encounter Start Time: 10:35 Subjective: no sob or palp - Objective Resuscitation Status: Resuscitation Status FULL:Full Resuscitation MAR Reviewed: Yes Vital Signs & Weight: Vital Signs (12 hours) Temp Pulse Resp BP Pulse Ox 03/12/17 10:59 97.8 F 69 16 121/76 100 03/12/17 08:53 69 03/12/17 08:00 98.1 F 69 18 03/12/17 07:28 98.1 F 69 16 111/61 100 03/12/17 07:22 69 14 98 03/12/17 05:55 97.6 F 75 20 115/72 97 03/12/17 02:12 79 16 94 L Weight Admit Weight 466 lb 8 oz Weight 466 lb 8 oz I&O: 03/11/17 03/12/17 03/13/17 06:59 06:59 06:59 Intake Total 2635 1210 Balance 2635 1210 Result Diagrams: 03/12/17 08:17 03/12/17 08:17 Additional Labs: Accuchecks 03/12/17 03/12/17 03/11/17 04:40 01:40 19:54 POC Glucose 537 H 530 H Greater than 550 H* 03/11/17 17:00 POC Glucose 527 H Phys Exam - Physical Examination HEENT: PERRLA, moist MMs Neck: no JVD, supple Respiratory: no wheezing, no rales Cardiovascular: RRR, no significant murmur Gastrointestinal: soft, non-tender, positive bowel sounds Musculoskeletal: no edema, pulses present Neurological: non-focal, moves all 4 limbs Psychiatric: A&O x 3 Dx/Plan (1) Asthmatic bronchitis with acute exacerbation Code(s): J45.901 - UNSPECIFIED ASTHMA WITH (ACUTE) EXACERBATION Status: Acute Qualifiers: Asthma severity: moderate (2) DM (diabetes mellitus), type 2, uncontrolled Code(s): E11.65 - TYPE 2 DIABETES MELLITUS WITH HYPERGLYCEMIA Status: Acute Qualifiers: Diabetes mellitus complication status: with kidney complications Diabetes mellitus complication detail: with chronic kidney disease Diabetes mellitus skilled nursing insulin use: without termination clerk use Chronic kidney disease stage: stage 3 (moderate) Qualified Code(s): E11.22 - Type 2 diabetes mellitus with diabetic chronic kidney disease; E11.65 - Type 2 diabetes mellitus with hyperglycemia; E11.65 - Type 2 diabetes mellitus with hyperglycemia; E11.65 - Type 2 diabetes mellitus with hyperglycemia; E11.65 - Type 2 diabetes mellitus with hyperglycemia; N18.3 - Chronic kidney disease, stage 3 (moderate); N18.3 - Chronic kidney disease, stage 3 (moderate) Comment: uncontrolled, new onset (3) Morbid obesity with BMI of 60.0-69.9, adult Code(s): E66.01 - MORBID (SEVERE) OBESITY DUE TO EXCESS CALORIES; Z68.44 - BODY MASS INDEX (BMI) 60.0-69.9, ADULT Status: Chronic (4) CKD (chronic kidney disease) stage 3, GFR 30-59 ml/min Code(s): N18.3 - CHRONIC KIDNEY DISEASE, STAGE 3 (MODERATE) Status: Chronic (5) HTN (hypertension) Code(s): I10 - ESSENTIAL (PRIMARY) HYPERTENSION Status: Chronic Qualifiers: Hypertension type: essential hypertension Qualified Code(s): I10 - Essential (primary) hypertension (6) Obstructive sleep apnea Code(s): G47.33 - OBSTRUCTIVE SLEEP APNEA (ADULT) (PEDIATRIC) Status: Chronic (7) Sarcoidosis Code(s): D86.9 - SARCOIDOSIS, UNSPECIFIED Status: Chronic - Plan has been started back on imuran for sarcoid -: is on prednisone for current asthma exac -: add glipizide, metformin to levemir 25 u bid -: will have to rapidly taper above meds as her steroids are getting tapered -: dc when fingerstick glucose is around 300's atleast * . Review of Systems - Medications/Allergies Allergies/Adverse Reactions: Allergies Allergy/AdvReac Type Severity Reaction Status Date / Time oxycodone HCl Allergy Severe Anaphylaxis Verified 03/09/17 02:37 [From OxyContin] penicillin G Allergy Severe Anaphylaxis Verified 03/09/17 02:37 Medications: Current Medications Acetaminophen (Tylenol) 650 mg PO Q4H PRN PRN Reason: Headache/Fever or Pain Last Admin: 03/11/17 09:06 Dose: 650 mg Albuterol/Ipratropium (Duoneb) 3 ml NEB [id number] MANISHA Last Admin: 03/12/17 11:37 Dose: 3 ml Albuterol/Ipratropium (Duoneb) 3 ml NEB Q2H PRN PRN Reason: SOB &/or Wheezing Alprazolam (Xanax) 0.25 mg PO BID PRN PRN Reason: Anxiety Last Admin: 03/10/17 21:48 Dose: 0.25 mg Amlodipine Besylate (Norvasc) 5 mg PO DAILY [facility] Last Admin: 03/12/17 08:53 Dose: Not Given Azathioprine (Imuran) 100 mg PO 1200 [facility] Last Admin: 03/12/17 11:06 Dose: 100 mg Bisacodyl (Dulcolax) 10 mg PO DAILYPRN PRN PRN Reason: Constipation Calcium Carbonate (Tums) 1,000 mg PO Q4H PRN PRN Reason: Heartburn or Indigestion Citalopram Hydrobromide (Celexa) 20 mg PO DAILY [facility] Last Admin: 03/12/17 08:52 Dose: 20 mg Dextrose/Water (Dextrose 50%) 25 gm SLOW IVP PRN PRN PRN Reason: Hypoglycemia Docusate Sodium (Colace) 100 mg PO BID [facility] Last Admin: 03/12/17 08:53 Dose: Not Given Enoxaparin Sodium (Lovenox) 40 mg SC 2100 [facility] Last Admin: 03/11/17 21:18 Dose: Not Given Famotidine (Pepcid) 20 mg PO BID [facility] Last Admin: 03/12/17 08:53 Dose: Not Given Gabapentin (Neurontin) 300 mg PO BID [facility] Last Admin: 03/12/17 08:53 Dose: 300 mg Glipizide (Glucotrol) 10 mg PO DAILY-[facility] Glucagon (Glucagon) 1 mg IM PRN PRN PRN Reason: Hypoglycemia Hydralazine HCl (Apresoline) 10 mg SLOW IVP Q4H PRN PRN Reason: Systolic BP > 180 Insulin Detemir 25 units/ (Miscellaneous Medication) 0.25 mls @ 0 mls/hr SC BID [facility] Last Admin: 03/12/17 08:55 Dose: 0.25 mls Dextrose/Water (D5w) 1,000 mls @ 0 mls/hr IV .Q0M PRN; As Directed PRN Reason: Hypoglycemia Insulin Human Lispro (Humalog) 0 units SC .BEDTIME SLIDING SC PRN PRN Reason: Bedtime Correctional Scale Last Admin: 03/12/17 02:23 Dose: 5 unit Insulin Human Lispro (Humalog) 0 units SC .AGGRESSIVE SLIDING PRN PRN Reason: Aggressive Correctional Scale Last Admin: 03/12/17 11:07 Dose: 13 unit Insulin Human Lispro (Humalog) 5 units SC 0800 [facility] Last Admin: 03/12/17 09:02 Dose: 5 unit Insulin Human Lispro (Humalog) 5 units SC 1200 [facility] Last Admin: 03/12/17 11:21 Dose: 5 unit Insulin Human Lispro (Humalog) 5 units SC 1700 [facility] Last Admin: 03/11/17 17:12 Dose: 5 unit Levofloxacin (Levaquin) 500 mg PO 0600 [facility] Last Admin: 03/12/17 05:21 Dose: 500 mg Metformin HCl (Glucophage) 500 mg PO TID [facility] Last Admin: 03/12/17 08:53 Dose: 500 mg Miscellaneous Medication (Pharmacy To Dose) 1 each IVPB PRN PRN PRN Reason: Pharmacy to dose Nitroglycerin (Nitrostat) 0.4 mg PO Q5MIN PRN PRN Reason: Chest Pain Ondansetron HCl (Zofran Odt) 4 mg PO Q6H PRN PRN Reason: Nausea/Vomiting Ondansetron HCl (Zofran) 4 mg IVP Q6H PRN PRN Reason: Nausea/Vomiting Phenol (Chloraseptic [place] 180 Ml Bot) 0 ml PO PRN PRN PRN Reason: Sore Throat Prednisone (Prednisone) 5 mg PO QAM-WM [facility] Senna (Senokot) 2 tab PO HSPRN PRN PRN Reason: Constipation
[2017-03-12] MEDS: Enoxaparin Sodium 40 MG/0.4 ML SYRINGE SC SCH (20:43)
[2017-03-12] MEDS: Acetaminophen 325 MG TAB PO PRN (21:32)
[2017-03-13] MEDS: HumaLOG 300 UNITS/3 ML VIAL SC PRN ×3 (05:31→15:50)
[2017-03-13] MEDS ORDERED: glipiZIDE 10 MG TAB PO SCH (07:30)
[2017-03-13] MEDS: Famotidine 20 MG TAB PO SCH (07:58)
[2017-03-13] MEDS: Docusate 100 MG CAP PO SCH (07:58)
[2017-03-13] MEDS: Amlodipine 5 MG TAB PO SCH (08:00)
[2017-03-13] MEDS ORDERED: predniSONE 5 MG TAB PO SCH (08:00)
[2017-03-13] MEDS: Citalopram 20 MG TAB PO SCH (08:01)
[2017-03-13] MEDS: metFORMIN 500 MG TAB PO SCH ×2 (08:01→15:50)
[2017-03-13] MEDS: Gabapentin 300 MG CAP PO SCH (08:01)
[2017-03-13] MEDS: Insulin Detemir 100 UNITS/ML 25 UNITS in Pre-Filled Syringe SC SCH (08:03)
[2017-03-13] MEDS: HumaLOG 300 UNITS/3 ML VIAL SC SCH ×3 (09:16→16:23)
--- NOTE | 2017-03-13 10:40 | PRG ---
DATE OF SERVICE: 03/13/2017 She feels okay and wants to go home. PHYSICAL EXAMINATION: VITAL SIGNS: Temperature 98.7, pulse 76, respirations 18, O2 sat 93%. HEENT: Unremarkable. NECK: No JVD. LUNGS: A few end expiratory wheezes. CARDIAC: S1 and S2 regular. ABDOMEN: Soft. EXTREMITIES: No edema. LABORATORY DATA: Blood sugars are still running in the 300 and 400 range. ASSESSMENT: Diabetes with blood sugars out of control, likely aggravated by chronic corticosteroid u se. RECOMMENDATIONS: The patient was switched to azathioprine yesterday. Her prednisone dose has been r educed to 5 mg a day. She will continue the azathioprine and the nebulization treatments at home. S he needs to follow up in my office in 3-4 weeks when she is discharged. She understands that she has to keep clinic appointment follow ups in order to continue on the azathioprine.
[2017-03-13] MEDS: azaTHIOprine 50 MG TAB PO SCH (12:12)
--- NOTE | 2017-03-13 13:42 | PDOC.PN ---
- Subjective Encounter Start Date: 03/13/17 Encounter Start Time: 07:20 Subjective: feels better, wants to go home - Objective Resuscitation Status: Resuscitation Status FULL:Full Resuscitation MAR Reviewed: Yes Vital Signs & Weight: Vital Signs (12 hours) Temp Pulse Resp BP Pulse Ox 03/13/17 08:23 76 18 93 L 03/13/17 08:00 97.7 F 79 18 03/13/17 07:55 97.7 F 79 16 111/75 89 L 03/13/17 04:00 98.0 F 71 20 107/70 97 03/13/17 01:51 78 19 95 Weight Admit Weight 466 lb 8 oz Weight 466 lb 8 oz I&O: 03/12/17 03/13/17 03/14/17 06:59 06:59 06:59 Intake Total 1210 730 Balance 1210 730 Result Diagrams: 03/12/17 08:17 03/12/17 08:17 Additional Labs: Accuchecks 03/13/17 03/13/17 03/13/17 10:37 07:54 04:40 POC Glucose 332 H 321 H 399 H 03/12/17 03/12/17 19:47 16:26 POC Glucose 413 H 383 H Phys Exam - Physical Examination HEENT: PERRLA, moist MMs Neck: no JVD, supple Respiratory: no wheezing, no rales Cardiovascular: RRR, no significant murmur Gastrointestinal: soft, non-tender, positive bowel sounds Musculoskeletal: no edema, pulses present Neurological: non-focal, moves all 4 limbs Psychiatric: A&O x 3 Dx/Plan (1) Asthmatic bronchitis with acute exacerbation Code(s): J45.901 - UNSPECIFIED ASTHMA WITH (ACUTE) EXACERBATION Status: Resolved Qualifiers: Asthma severity: moderate (2) DM (diabetes mellitus), type 2, uncontrolled Code(s): E11.65 - TYPE 2 DIABETES MELLITUS WITH HYPERGLYCEMIA Status: Acute Qualifiers: Diabetes mellitus complication status: with kidney complications Diabetes mellitus complication detail: with chronic kidney disease Diabetes mellitus prison insulin use: without residential real estate appraiser use Chronic kidney disease stage: stage 3 (moderate) Qualified Code(s): E11.22 - Type 2 diabetes mellitus with diabetic chronic kidney disease; E11.65 - Type 2 diabetes mellitus with hyperglycemia; E11.65 - Type 2 diabetes mellitus with hyperglycemia; E11.65 - Type 2 diabetes mellitus with hyperglycemia; E11.65 - Type 2 diabetes mellitus with hyperglycemia; N18.3 - Chronic kidney disease, stage 3 (moderate); N18.3 - Chronic kidney disease, stage 3 (moderate) Comment: uncontrolled, new onset (3) Morbid obesity with BMI of 60.0-69.9, adult Code(s): E66.01 - MORBID (SEVERE) OBESITY DUE TO EXCESS CALORIES; Z68.44 - BODY MASS INDEX (BMI) 60.0-69.9, ADULT Status: Chronic (4) CKD (chronic kidney disease) stage 3, GFR 30-59 ml/min Code(s): N18.3 - CHRONIC KIDNEY DISEASE, STAGE 3 (MODERATE) Status: Chronic (5) HTN (hypertension) Code(s): I10 - ESSENTIAL (PRIMARY) HYPERTENSION Status: Chronic Qualifiers: Hypertension type: essential hypertension Qualified Code(s): I10 - Essential (primary) hypertension (6) Obstructive sleep apnea Code(s): G47.33 - OBSTRUCTIVE SLEEP APNEA (ADULT) (PEDIATRIC) Status: Chronic (7) Sarcoidosis Code(s): D86.9 - SARCOIDOSIS, UNSPECIFIED Status: Chronic - Plan prednisone to dc'd after 4 days -: metformin and glipizide for residential real estate appraiser -: levemir for few days on dc -: complete instructions given reg glucose monitoring and meds -: inez is available with her insurance * .
[2017-03-13 16:39] VITALS: BP 126/83; TEMP 97.8
--- NOTE | 2017-03-13 23:57 | DIS ---
DATE OF ADMISSION: 03/09/2017 DATE OF DISCHARGE: 03/13/2017 DISCHARGE DISPOSITION: To home. PRIMARY DISCHARGE DIAGNOSES: Acute asthma exacerbation, diabetes mellitus type 2, uncontrolled due to steroids, morbid obesity, chronic kidney disease stage 3 , hypertension, obstructive sleep apnea, chronic sarcoidosis initiated on the Imuran. PROCEDURES DONE DURING HOSPITALIZATION: Chest x-ray done on the day of admission showed questionable pneumonitis, otherwise no new findings were seen. Blood cultures x2 no growth. Influenza A and B antigens were negative. White count of 4.7 on the day of admission with H&H of 15 and 47, and platelet count 177. Discharge fingerstick glucoses is ranging from 321 to 399. Initial BUN and creatinine were 14 and 1.86 with discharge numbers of 21 and 1.9. DISCHARGE MEDICATIONS: Imuran 100 mg p.o. daily, Norvasc 5 mg p.o. daily, Xanax p.r.n. twice daily for anxiety, Celexa 20 mg p.o. daily, Neurontin 600 mg twice daily, glipizide 10 mg daily, Levemir 10 units subcutaneous at bedtime, metformin 500 mg p.o. three times daily, prednisone 5 mg p.o. daily for another 3 days and to discontinue lisinopril with hydrochlorothiazide 20/12.5 mg p.o. daily, Levaquin 500 mg p.o. daily, DuoNebs q.i.d. ALLERGIES: OXYCODONE and PENICILLIN. INPATIENT CONSULTS: Dr. Moran's/Dr. Steel for pulmonology. DISCHARGE PLAN: The patient to follow up with Dr. Moran in 2 weeks and primary care physician in 1 week. BRIEF COURSE DURING HOSPITALIZATION: Patient initially got admitted on the with complaints of nausea, vomiting, shortness of breath, and hypoxia. She was essentially admitted for asthma exacerbation with history of morbid obesity and likely hypoventilation syndrome as well. Patient also was diagnosed with new onset diabetes with urine sugars of more than 1000 mg per deciliter. As patient required steroids for her asthma, her diabetes remained uncontrolled. She was placed on multiple new medications. She has been doing remarkably well the last 24 hours. She is wanting to go home, come what may today and see her children, who she has not seen for nearly 4 days now. She is willing to check her blood sugars twice daily and not take any medications for her diabetes, if the sugar is less than 150 mg. This is in view of not knowing how patient would react once she is off steroids to her diabetic medications. She needs to check her fingerstick glucose twice daily and record on a sheet of paper to follow up with her primary care physician in 1 week. Also, her prednisone needs to be discontinued in 3 days. She has been placed on Imuran for her sarcoidosis and needs to continue that 100 mg daily. She has confirmed that her insurance will pay for this. She needs to see Dr. Moran in 2 weeks. She has been educated with regarding hypoglycemic symptoms by me and the nurse prior to discharge. Please see a face to face documentation on [facility] for the day of discharge. NERY
== END 2017-03-13 17:04 | disposition home or self-care (01) | DRG 189 ==
LOC: ERS 17:12 → T4-B 03-09 00:46
PROVIDERS: ADMIT Internal Medicine; ATTEND Internal Medicine
DX: J96.01 Acute respiratory failure with hypoxia (principal); E11.22 Type 2 diabetes mellitus with diabetic chronic kidney disease; N17.9 Acute kidney failure, unspecified; J45.901 Unspecified asthma with (acute) exacerbation; E11.65 Type 2 diabetes mellitus with hyperglycemia; E86.0 Dehydration; E66.01 Morbid (severe) obesity due to excess calories; N18.3 Chronic kidney disease, stage 3 (moderate); Z68.44 Body mass index [BMI] 60.0-69.9, adult; J98.11 Atelectasis; G62.9 Polyneuropathy, unspecified; G47.33 Obstructive sleep apnea (adult) (pediatric); R11.2 Nausea with vomiting, unspecified; Z95.0 Presence of cardiac pacemaker; D86.9 Sarcoidosis, unspecified; K21.9 Gastro-esophageal reflux disease without esophagitis; T38.0X5A Adverse effect of glucocorticoids and synthetic analogues, initial encounter; I12.9 Hypertensive chronic kidney disease with stage 1 through stage 4 chronic kidney disease, or unspecified chronic kidney disease
CPT/HCPCS: 36415; 36416; 71045; 80048; 80053; 81003; 81015; 82010; 82330; 82550; 82553; 82803; 83036; 83735; 83880; 84100; 84484; 85025; 87040; 90471; 90682; 93005; 94640; 94760; 96361; 96365; 96367; 96375; G0008; J0456; J0696; J1650; J1815; J1956; J2920; J7050; J7500; J7506; J7620; Q2036

== ENCOUNTER 2019-01-20 11:04 | Outpatient (CLI) | payer OTHER | END 2019-01-20 11:05 | disposition home or self-care (01) | LOC: DTY/OP 11:04 | PROVIDERS: ATTEND Surgery | DX: E66.01 Morbid (severe) obesity due to excess calories (principal) | CPT/HCPCS: 97802 ==

== ENCOUNTER 2020-04-02 12:52 | Outpatient (CLI) | payer OTHER | END 2020-04-02 12:53 | disposition home or self-care (01) | LOC: DTY/OP 12:52 | PROVIDERS: ATTEND Surgery | DX: E66.01 Morbid (severe) obesity due to excess calories (principal) | CPT/HCPCS: 97802 ==

== ENCOUNTER 2020-05-14 18:20 | Emergency (ER) | payer OTHER ==
[2020-05-14] MEDS ORDERED: predniSONE 20 MG TAB ONE (18:56)
[2020-05-14 19:01] LABS: #Eosinphils 0.3 thou/uL (0.0-0.7); #Lymphocytes 0.9 thou/uL (1.20-3.40); #Monocytes 0.6 thou/uL (0.11-0.59); #Neutrophils 2.8 thou/uL (1.40-6.50); %Eosinophils 6.4 % (0.0-10.0); %Lymphocytes 19.7 % (21.0-51.0); %Neutrophils 60.8 % (42.0-75.0); Hemoglobin 11.5 g/dL (12.0-16.0); Mean Corpuscular HGB CONC 32.9 g/dL (32.0-36.0); Mean Corpuscular Hemoglobin 30.6 pg (27.0-31.0); Mean Corpuscular Volume 93.2 fL (78.0-98.0); Mean Platelet Volume 7.2 fL (7.4-10.4); Platelet Count 269 thou/uL (130-400); RBC Distribution Width 13.5 % (11.5-14.5); Red Blood Cell (RBC) Count 3.75 mill/uL (4.20-5.40); White Blood Cell (WBC) Count 4.5 thou/uL (4.8-10.8)
[2020-05-14 19:27] LABS: ALT (SGPT) 7 U/L (8-55); AST (SGOT) 20 U/L (5-34); Albumin 3.6 g/dL (3.5-5.0); Alkaline Phosphatase 90 U/L (40-110); Anion Gap 11 mmol/L (10-20); BUN (Urea Nitrogen) 20 mg/dL (7.0-18.7); Bilirubin, Total 0.5 mg/dL (0.2-1.2); Calc. Creatinine Clearance 0 mL/min (70-130); Calcium 8.9 mg/dL (7.8-10.44); Carbon Dioxide 30 mmol/L (22-29); Chloride 103 mmol/L (98-107); Globulin 4.2 g/dL (2.4-3.5); Glucose 107 mg/dL (70-105); Potassium 4.7 mmol/L (3.5-5.1); Protein, Total 7.8 g/dL (6.0-8.3); Sodium 139 mmol/L (136-145)
[2020-05-15 02:54] LABS: SARS-CoV-2 PCR by NAA Not Detected (NotDetected)
== END 2020-05-14 19:56 | disposition home or self-care (01) ==
LOC: ERS 18:20
DX: J44.1 Chronic obstructive pulmonary disease with (acute) exacerbation (principal); I11.0 Hypertensive heart disease with heart failure; I50.9 Heart failure, unspecified; E11.9 Type 2 diabetes mellitus without complications; K21.9 Gastro-esophageal reflux disease without esophagitis; D50.9 Iron deficiency anemia, unspecified; E78.5 Hyperlipidemia, unspecified; E78.00 Pure hypercholesterolemia, unspecified; M10.9 Gout, unspecified; G47.30 Sleep apnea, unspecified; Z95.0 Presence of cardiac pacemaker; Z20.822 Contact with and (suspected) exposure to COVID-19; Z79.899 Other long term (current) drug therapy
CPT/HCPCS: 71045; 80053; 84484; 85025; 87635; 93005; 94640; 94760; J7512; J7620; U0003; U0005

== ENCOUNTER 2020-06-17 13:05 | Outpatient (CLI) | payer OTHER | END 2020-06-17 13:06 | disposition home or self-care (01) | LOC: DTY/OP 13:05 | PROVIDERS: ATTEND Surgery | DX: E66.01 Morbid (severe) obesity due to excess calories (principal) | CPT/HCPCS: 97802 ==

== ENCOUNTER 2020-07-15 14:21 | Outpatient (CLI) | payer OTHER | END 2020-07-15 14:22 | disposition home or self-care (01) | LOC: DTY/OP 14:21 | PROVIDERS: ATTEND Surgery | DX: E66.01 Morbid (severe) obesity due to excess calories (principal); Z68.45 Body mass index [BMI] 70 or greater, adult | CPT/HCPCS: 97802 ==

== ENCOUNTER 2021-04-18 11:32 | Outpatient (CLI) | payer OTHER | END 2021-04-18 11:33 | disposition home or self-care (01) | LOC: BICULT 11:32 | PROVIDERS: ATTEND Internal Medicine Nephrology | DX: N18.4 Chronic kidney disease, stage 4 (severe) (principal) | CPT/HCPCS: 36415; 76770; 80048; 81001; 82570; 83970; 84100; 84156; 85025 ==

== ENCOUNTER 2023-10-29 08:55 | Outpatient (CLI) | payer OTHER | END 2023-10-29 08:56 | disposition home or self-care (01) | LOC: RAD 08:55 | PROVIDERS: ATTEND Internal Medicine Critical Care Medicine | DX: R06.00 Dyspnea, unspecified (principal); I51.7 Cardiomegaly; R09.89 Other specified symptoms and signs involving the circulatory and respiratory systems | CPT/HCPCS: 71046 ==

== ENCOUNTER 2024-03-13 13:23 | Outpatient (CLI) | payer OTHER | END 2024-03-13 13:24 | disposition home or self-care (01) | PROVIDERS: ATTEND Family Medicine | DX: J44.0 Chronic obstructive pulmonary disease with (acute) lower respiratory infection (principal); D86.9 Sarcoidosis, unspecified; Z68.45 Body mass index [BMI] 70 or greater, adult; Z99.81 Dependence on supplemental oxygen ==